=== PATIENT | female | born 1995 | race Caucasian/White ===

== ENCOUNTER 2021-12-28 08:57 | Outpatient (CLI) | payer OTHER ==
[2021-12-28 22:41] LABS: SARS-CoV-2 PCR by NAA Not Detected (NotDetected)
== END 2021-12-28 08:58 | disposition home or self-care (01) ==
LOC: CSHLAB 08:57
PROVIDERS: ATTEND Obstetrics & Gynecology
DX: Z20.822 Contact with and (suspected) exposure to COVID-19 (principal)
CPT/HCPCS: U0003; U0005

== ENCOUNTER 2021-12-31 18:00 | Inpatient (IN) | payer OTHER ==
[2021-12-31 19:27] VITALS: BMI 27.3
[2021-12-31] MEDS ORDERED: Ondansetron PF 4 MG/2 ML Vial IVP PRN (19:31)
[2021-12-31] MEDS ORDERED: Diphenoxylate HCl/Atropine Tablet PO PRN ×2 (19:31)
[2021-12-31] MEDS ORDERED: Acetaminophen 500 MG TAB PO PRN (19:31)
[2021-12-31] MEDS ORDERED: Misoprostol 200 MCG TAB PR PRN (19:31)
[2021-12-31] MEDS ORDERED: hydrALAZINE 20 MG/ML VIAL SLOW IVP PRN (19:31)
[2021-12-31] MEDS ORDERED: Carboprost 250 MCG/ML AMP IM PRN (19:31)
[2021-12-31] MEDS ORDERED: HYDROcodone/Acetaminophen 5/325 mg Tablet PO PRN (19:31)
[2021-12-31] MEDS ORDERED: Zolpidem Tartrate 5 MG TAB PO PRN (19:31)
[2021-12-31] MEDS ORDERED: Promethazine HCl 25 MG/ML VIAL IM PRN (19:31)
[2021-12-31] MEDS ORDERED: Lidocaine 1% (PF) 30 ML VIAL SC PRN (19:31)
[2021-12-31] MEDS ORDERED: Ibuprofen 800 MG TAB PO PRN (19:31)
[2021-12-31] MEDS ORDERED: Butorphanol Tartrate 1 MG/ML VIAL SLOW IVP PRN (19:31)
[2021-12-31] MEDS ORDERED: NS w/ Oxytocin 30 units 500 ML IV SCH ×2 (19:45)
[2021-12-31 20:12] LABS: Hemoglobin 11.8 g/dL (12.0-15.5); Mean Corpuscular HGB CONC 35.2 g/dL (32.0-36.0); Mean Corpuscular Hemoglobin 28.9 pg (27.0-33.0); Mean Corpuscular Volume 82.1 fl (81.6-98.3); Mean Platelet Volume 10.2 fl (7.4-10.4); Platelet Count 197 10x3/uL (150-450); RBC Distribution Width 13.8 % (11.5-14.5); Red Blood Cell (RBC) Count 4.08 10x6/uL (3.90-5.03)
[2021-12-31 20:30] LABS: ALT (SGPT) 32 U/L (8-55); AST (SGOT) 18 U/L (5-34); Albumin 3.6 g/dL (3.5-5.0); Alkaline Phosphatase 110 U/L (40-110); Anion Gap 15 mmol/L (10-20); BUN (Urea Nitrogen) 9 mg/dL (7.0-18.7); Bilirubin, Total 0.5 mg/dL (0.2-1.2); Calc. Creatinine Clearance 169 mL/min (70-130); Calcium 9.2 mg/dL (7.8-10.44); Carbon Dioxide 21 mmol/L (22-29); Chloride 102 mmol/L (98-107); Globulin 2.9 g/dL (2.4-3.5); Glucose 101 mg/dL (70-105); Potassium 3.8 mmol/L (3.5-5.1); Protein, Total 6.5 g/dL (6.0-8.3); Sodium 134 mmol/L (136-145)
[2021-12-31] MEDS: Misoprostol 100 MCG TAB VAG SCH (20:34)
[2021-12-31 20:50] LABS: Syphilis Antibody Nonreactive (Nonreactive); Syphilis Antibody Index 0.07 S/CO (<1.00 Non-Reactive)
[2021-12-31 20:51] LABS: Hep B Surf Ag Non-Reactive S/CO (NonReactive)
[2021-12-31 20:58] LABS: HBSAg Index 0.18 S/CO (0-0.99)
[2021-12-31] MEDS ORDERED: Ursodiol 300 MG CAP PO SCH (22:30)
[2022-01-01] MEDS: Misoprostol 100 MCG TAB VAG SCH (02:32)
[2022-01-01] MEDS: Ursodiol 300 MG CAP PO SCH ×3 (06:00→22:25)
[2022-01-01] MEDS ORDERED: Misoprostol 100 MCG TAB PO SCH (07:00)
[2022-01-01] MEDS ORDERED: Dinoprostone 10 MG Suppository VAG SCH (14:30)
[2022-01-02] MEDS: Ursodiol 300 MG CAP PO SCH (05:44)
[2022-01-02] MEDS ORDERED: Bicitra 30 ML UDCUP PO PRN (07:38)
[2022-01-02] MEDS ORDERED: Famotidine/PF 20 mg/2ml Vial SLOW IVP PRN (07:38)
[2022-01-02] MEDS ORDERED: ceFAZolin 2 GM/Dextrose 50 ML 2 GM in Premix Bag 1 BAG IVPB SCH (07:45)
[2022-01-02] MEDS ORDERED: Morphine PF 10 MG/10 ML VIAL ONE (09:10)
[2022-01-02] MEDS ORDERED: Ondansetron PF 4 MG/2 ML Vial ONE (09:11)
[2022-01-02] MEDS ORDERED: Dexamethasone 4 mg/ml Vial ONE (09:11)
[2022-01-02] MEDS ORDERED: Ketorolac Tromethamine 30 MG/ML VIAL ONE (09:11)
[2022-01-02] MEDS ORDERED: Metoclopramide HCl 10 MG/2 ML VIAL ONE (09:11)
[2022-01-02] MEDS ORDERED: Phenylephrine 40 MG/NS 250 ML 250 ML ONE (09:11)
[2022-01-02] MEDS ORDERED: Oxytocin 10 UNITS/ML VIAL ONE ×3 (09:11→10:51)
[2022-01-02] MEDS ORDERED: Meperidine HCl/PF 25 MG/ML VIAL SLOW IVP PRN (09:58)
[2022-01-02] MEDS ORDERED: Naloxone HCl 0.4 mg/ml Vial IVP PRN ×2 (09:58)
[2022-01-02] MEDS ORDERED: Promethazine HCl 25 MG SUPP PR PRN (09:58)
[2022-01-02] MEDS ORDERED: Promethazine HCl 25 MG/ML VIAL IM PRN (09:58)
[2022-01-02] MEDS ORDERED: Moisturizing Cream (Eucerin) 113 GM JAR TOP PRN (09:58)
[2022-01-02] MEDS ORDERED: diphenhydrAMINE 50 MG/ML VIAL IVP PRN (09:58)
[2022-01-02] MEDS ORDERED: Ondansetron PF 4 MG/2 ML Vial IVP PRN (09:58)
[2022-01-02] MEDS ORDERED: Fentanyl 100 MCG/2 ML VIAL SLOW IVP PRN (09:58)
[2022-01-02] MEDS ORDERED: Naloxone HCl 0.4 mg/ml Vial IV PRN (09:58)
[2022-01-02] MEDS ORDERED: Ondansetron HCl/PF 4 MG/2 ML Vial IVP PRN (09:58)
[2022-01-02] MEDS ORDERED: Communication Order-Pharmacy FS SCH (10:00)
[2022-01-02] MEDS ORDERED: Carboprost 250 MCG/ML AMP ONE (10:48)
[2022-01-02] MEDS ORDERED: Simethicone Chewable 80 MG TAB PO PRN (11:01)
[2022-01-02] MEDS ORDERED: diphenhydrAMINE 25 MG CAP PO PRN (11:01)
[2022-01-02] MEDS ORDERED: Lanolin Ointment 7 GM TUBE TOP PRN (11:01)
[2022-01-02] MEDS ORDERED: Bisacodyl 10 MG SUPP PR PRN (11:01)
[2022-01-02] MEDS ORDERED: hydrALAZINE 20 MG/ML VIAL SLOW IVP PRN (11:01)
[2022-01-02] MEDS ORDERED: Diphenoxylate HCl/Atropine Tablet PO PRN (11:31)
[2022-01-02] MEDS: Misoprostol 100 MCG TAB VAG SCH ×2 (13:54→13:55)
[2022-01-02] MEDS ORDERED: Ketorolac Tromethamine 30 MG/ML VIAL IVP PRN (15:00)
[2022-01-02] MEDS: Ibuprofen 800 MG TAB PO SCH (20:45)
[2022-01-02] MEDS: Docusate 100 MG CAP PO SCH (20:48)
[2022-01-02] MEDS: Ferrous Sulfate 325 MG TAB PO SCH (20:49)
[2022-01-03 04:43] LABS: Hemoglobin 9.3 g/dL (12.0-15.5); Mean Corpuscular HGB CONC 34.4 g/dL (32.0-36.0); Mean Corpuscular Hemoglobin 28.9 pg (27.0-33.0); Mean Corpuscular Volume 83.9 fl (81.6-98.3); Mean Platelet Volume 10.1 fl (7.4-10.4); Platelet Count 160 10x3/uL (150-450); RBC Distribution Width 13.6 % (11.5-14.5); Red Blood Cell (RBC) Count 3.22 10x6/uL (3.90-5.03); White Blood Cell (WBC) Count 13.1 10x3/uL (3.5-10.5)
[2022-01-03] MEDS: Ibuprofen 800 MG TAB PO SCH ×3 (05:40→21:56)
[2022-01-03] MEDS: Prenatal Vitamin 1 TAB PO SCH (08:01)
[2022-01-03] MEDS: Ferrous Sulfate 325 MG TAB PO SCH ×2 (08:01→21:56)
[2022-01-03] MEDS: Docusate 100 MG CAP PO SCH ×2 (08:01→21:56)
[2022-01-03] MEDS ORDERED: Boostrix 0.5 ML (Tdap) VIAL IM ONE (11:01)
[2022-01-03] MEDS ORDERED: HYDROcodone/Acetaminophen 5/325 mg Tablet PO PRN (15:01)
[2022-01-03] MEDS: HYDROcodone/Acetaminophen 5/325 mg Tablet PO PRN (15:15)
[2022-01-04] MEDS: Ibuprofen 800 MG TAB PO SCH ×2 (06:04→14:40)
[2022-01-04 07:49] VITALS: BP 112/56; TEMP 98
[2022-01-04] MEDS: Prenatal Vitamin 1 TAB PO SCH (08:15)
[2022-01-04] MEDS: Docusate 100 MG CAP PO SCH (08:15)
[2022-01-04] MEDS: Ferrous Sulfate 325 MG TAB PO SCH (08:15)
[2022-01-04] MEDS: HYDROcodone/Acetaminophen 5/325 mg Tablet PO PRN ×2 (08:15→16:54)
== END 2022-01-04 17:15 | disposition home or self-care (01) | DRG 786 ==
LOC: CSHLD 18:52 → CSHPP 01-02 13:20
PROVIDERS: ADMIT Obstetrics & Gynecology; ATTEND Obstetrics & Gynecology
PROC: 10D00Z1 Extraction of Products of Conception, Low, Open Approach (ICD-10-PCS; principal; 2022-01-02)
PROC: 3E0P7VZ Introduction of Hormone into Female Reproductive, Via Natural or Artificial Opening (ICD-10-PCS; 2022-01-02)
PROC: 3E033VJ Introduction of Other Hormone into Peripheral Vein, Percutaneous Approach (ICD-10-PCS; 2022-01-02)
DX: O26.62 Liver and biliary tract disorders in childbirth (principal); K83.1 Obstruction of bile duct; Z3A.38 38 weeks gestation of pregnancy; Z37.0 Single live birth; O61.0 Failed medical induction of labor; O62.2 Other uterine inertia
CPT/HCPCS: 36415; 51702; 80053; 85027; 86780; 86850; 86900; 86901; 87340; J0690; J1100; J1885; J2274; J2405; J2590; J2765; J3490; S0028